=== PATIENT | male | born 1985 | race Caucasian/White ===

== ENCOUNTER → 2017-11-26 16:50 | Outpatient (CLI) | payer OTHER, SELFPAY ==
--- NOTE | 2017-11-26 16:58 | RAD_ITS ---
STUDY: X-RAY - LEFT FOOT CLINICAL: Male, 32 years old. Fall. Previous surgery. TECHNIQUE: 3 view(s) of the foot. COMPARISON: None. FINDINGS: No definite acute fracture or dislocation. 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 Chronic deformities are seen of the talus and calcaneus. Diffuse demineralization. RAD/Foot min 3 Views IMPRESSION: No definite acute fracture or dislocation. Electronically Signed: Wally Ramírez MD at 8:35 EDT , Service support ,
--- NOTE | 2017-11-26 16:58 | RAD_ITS ---
STUDY: X-RAY - LEFT ANKLE REASON FOR EXAM: Male, 32 years old. Fall TECHNIQUE: 3 view(s) of the ankle. COMPARISON: None. FINDINGS: Normal visualized distal tibia and fibula. Normal medial and lateral malleoli. Normal tibiotalar articulation and ankle mortise. Normal visualized talus and calcaneus. There are pins noted at the distal tarsal articulations. Mild soft tissue edema. RAD/Ankle min 3 Views IMPRESSION: No acute bony injury of the ankle. Electronically Signed: Marco A Huizar DO at 23:46 EDT Tel [phone], Service support ,
== END ==
PROVIDERS: Family Provider Family Medicine; PCP Family Medicine; Visit Provider Physician Assistant
DX: S93.402A Sprain of unspecified ligament of left ankle, initial encounter (principal); S93.602A Unspecified sprain of left foot, initial encounter
CPT/HCPCS: 73610; 73630

== ENCOUNTER → 2018-03-25 10:10 | Outpatient (CLI) | payer OTHER, SELFPAY | PROVIDERS: Family Provider Family Medicine; PCP Family Medicine; Visit Provider Podiatrist | DX: M76.62 Achilles tendinitis, left leg (principal); S93.402A Sprain of unspecified ligament of left ankle, initial encounter | CPT/HCPCS: 73721 ==

== ENCOUNTER 2018-07-22 14:30 | Outpatient (RCR) | payer OTHER, SELFPAY ==
--- NOTE | 2018-06-03 15:21 | HP.PTEVAL_ITS ---
Patient's Visit Information NICHO DUGAN is a 33 year old M referred to Physical Therapy by Lucy Bob DPM with a diagnosis of ACHILLES INJURY,SPRAIN ANKLE. Date of Evaluation: 06/03/18 Physical Therapist: Kelechi Collier PT, - Visit Plan Frequency: 2x /Week Duration: 8weeks Plan: ROM ankle ,strengthening ex's ankle eccentrics ,proprioception ,modalities as needed - Subjective Subjective: This 33 y/o male presents to physical therapy with left achilles injury ,sprain ankle. Patient DOI November fell down hole at work. Patient had pain initally see [facility] did x-rays and reffered to poditrist DR Bob. Dr Bob placed patient in boot and order MRI.Also plan to do EPAT. Patient has heel ,achilles tendon pain. Symptoms worse with walking ,standing,difficuly some with lifting,squatting. Patient does stairs one step at a time. Denies parathesia/tingling. Pain affects sleeping. No Meds.Patient has left ankle surgery as many years ago affects motion.Patient pain ankle affects QOL and job demnads. SOCAIL: single. 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 NEURO: denies parathesia/tingling,. GAIT: decrease stance time left ankle with decrease heel strike toe off. PROPRIOCEPTION: poor. EDEMA: mild ankle. AROM: dorsiflexion 10 degrees from 0 ,plantarfascia 45 degrees,inversion 0 degrees ,inversion 10 degrees. MMT: posterior tibials 4- /5,perneous 4-/5,anterior tibilas 3+/5,plantarflexion 3/5 - Goals Goal 1:: Independant with HEP Goal Time Frame: 6-8 Weeks Goal 2:: Patient to improve gait with niormal larry and stance time. Goal Time Frame: 6-8 Weeks Goal 3:: Patient to improve AROM to WFL to improve function with gait. Goal Time Frame: 6-8 Weeks Goal 4:: Patient increase strength ankle by 1/2 grade to improve gait and function. Goal Time Frame: 6-8 Weeks Goal 5:: Patient improve proprioception symmtrical left compared to right. 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 Rehabilitation Potential: Good - Anticipated Interventions Patient/Client Instruction: Educate patient on: Condition, Plan of Care For the Purpose of:: To decrease pain, To increase ROM, To improve nutrient delivery to tissue, To increase oxygenation perfusion, To improve muscle performance and motor function, To increase tolerance to activi ty/condition/position, To improve ability of physical actions for home/community/work/leisure, To improve health of tissue, To decrease soft tissue restriction, To increase flexibility/ROM, To improve ability to perform tasks related to life management Therapeutic Exercise to Include: Strength training, Flexibilty training, Gait and locomotor training, Passive ROM, Active ROM Comment: ankle For the Purpose of:: To decrease pain, To increase ROM, To improve muscle performance and motor function, To improve ability to perform ADL's, To increase tolerance to activity/condition/position, To improve gait and locomotor functions, To improve health of tissue, To decrease soft tissue restriction, To increase flexibility/ROM, To improve ability to perform tasks related to life management TENS: Yes IF ES: Yes Cryotherapy (ice pack, ice massage): Yes Thermo therapy (hot pack): Yes Ultrasound (thermal/non thermal): Yes Vasopneumatic device: Yes For the Purpose of:: To decrease pain, To increase ROM, To improve health of tissue, To decrease soft tissue restriction, To increase flexibility/ROM Thank you for the opportunity to evaluate your patient. For Medicare and Medicare HMO plans, please review the plan of care and approve it. It will need to be FAXED BACK to us at [phone] for Medicare purposes. Please let me know if there are questions or concerns regarding this plan of care. Physician Signature: Date:
--- NOTE | 2018-07-27 15:40 | HP.PTDCSUM ---
HP - PT D/C Summary It has been my pleasure to treat NICHO DUGAN under orders from Lucy Bob DPM, for the diagnosis of ACHILLES INJURY,SPRAIN ANKLE for a total of 16 visit(s). Discharge Date: Please see the following information for a summary of their discharge status. - Subjective Subjective: Doing well.. Seen on the wanted to cont. Plan to return - Pain Left Ankle Pain Intensity (Out of 10): 0 - Overall Improvement % Improvement: 50 - Objective Objective/Function: POSTURE: pes planus. GAIT: normal larry stance time heeltrike. PROPRIOCEPTION: DIMINISHED LEFT COMPARED TO RIGHT. AROM: dorsiflexion 5 degrees from 0 ,plantarflexion 60 degrrees,eversion 3 degrees,inversion 10 degrees. MMT: 4/5 ,eccept IN/EV in anvialble ROM - Goals Goal 1:: Independant with HEP Goal Progress: Goal Met Goal 2:: Patient to improve gait with niormal larry and stance time. Goal Progress: Goal Met Goal 3:: Patient to improve AROM to WFL to improve function with gait. Goal Progress: Goal Met Goal 4:: Patient increase strength ankle by 1/2 grade to improve gait and function. Goal Progress: Goal Met Goal 5:: Patient improve proprioception symmtrical left compared to right. Goal Progress: Goal Met Goal 6:: Patient be able to perform job demnads with min to no limitations Goal Progress: Goal Met - Plan Plan: RTD NEED NEW C-9 IF CONT - D/C Information If there are questions or concerns regarding this patient's physical therapy, please feel free to call me at [phone]. Thank you for the referral of this patient. Sincerely, Kelechi Collier, PT, Cert MDT, OCS
== END 2018-07-22 19:00 | disposition home or self-care (01) ==
LOC: PT 14:30
PROVIDERS: Family Provider Family Medicine; PCP Family Medicine; Referring Provider Podiatrist; Visit Provider Podiatrist
DX: M76.62 Achilles tendinitis, left leg (principal); S93.402D Sprain of unspecified ligament of left ankle, subsequent encounter; S93.602D Unspecified sprain of left foot, subsequent encounter
CPT/HCPCS: 97110; 97161; 97530

== ENCOUNTER 2018-09-29 14:30 | Outpatient (RCR) | payer OTHER, SELFPAY ==
--- NOTE | 2018-08-25 15:29 | HP.PTEVAL_ITS ---
Patient's Visit Information NICHO DUGAN is a 33 year old M referred to Physical Therapy by Lucy Bob DPM with a diagnosis of ACHILLES TENDONITIS ,SPRAIN FOOT. Date of Evaluation: 08/25/18 Physical Therapist: Kelechi Collier PT, Cert MDT, OCS - Visit Plan Frequency: 2x /Week Duration: 4 Weeks Plan: LEFT ANKLE FLEXABLITY G-S,STRENGTHENING EX'S ANKLE ECCENTRICS,MANUAL THERAPY,PROPRIOCEPTION ,WORK CONDITIONING ,MODALITIES PRN - Subjective Findings: This 33 y/o male presents to physical therapy with left achilles tendonitis ,sprain foot. Patient fell down a hole at work injurying left ankle DOI 2017. Patient had pain initially and then [facility]- rays referred to Dr Bob. DR Bob placed in boot and ordered MRI. also did EPAT. Patient had PT which helped and got stronger. Seen Dr Bob recommended to cont PT and EPAT. Patient has mild pain 4/10. Patient slowly weaning from cam boot. Patient conts to have pain with extended walking and standing impairs job demands and ADL'S. Patient denies parathesia/tingling. Patient pain doesnt affect sleeping. Patient has h/o reconstruction surgery left ankle. Patientnt ankle impairs QOL and job demands. SOCIAL: single. VOCATION: [place] - Pain Left Ankle Pain Intensity (Out of 10): 4 Pain Intensity Range: 10 - Objective POSTURE: pes cavus. GAIT:Ambulates with heelstike toe off with mild decrease stance time during the gait cycle. PROPRIOCEPTION: impiared left greater than right : 5-10 sec SLS on left. NEURO: intact ,denies parathesia/tingling. EDEMA: absent. AROM: dorsiflexion 5 -0 degrees, plantar flexion 55 degrees, eversion 0 degrees,inversion 10 degrees. MMT: dorsiflexion 4/5 perneous /posterior tibialas 4-/5,G-S 3+/5. STAIR:one step at a time with stairs - Goals Goal 1:: Independant with HEP Goal Time Frame: 4-6 Weeks Goal 2:: Patient to normalize gait pattern with shoe on left Goal Time Frame: 4-6 Weeks Goal 3:: Improve proprioception left symmtrical to right Goal Time Frame: 4-6 Weeks Goal 4:: Improve AROM left ankle by 3-5 degrees or greater to improve function Goal Time Frame: 4-6 Weeks Goal 5:: Patient increase ankle stablizers by 4/5 to improve function with gait Goal Time Frame: 4-6 Weeks Goal 6:: Patient to improve LFES score by 5-10 points to improve QOL Goal Time Frame: 4-6 Weeks - Rehabilitation Potential Physical Therapy Diagnosis: Patient has left achilles tendonitis and sprain foot with decrease gait ,ROM ,proprioception,strength and stairs impairs ADLS' thus benifit from skilled Rehabilitation Potential: Good - Anticipated Interventions Patient/Client Instruction: Educate patient on: Condition, Plan of Care For the Purpose of:: To decrease pain, To increase ROM, To improve muscle performance and motor function, To improve ability to perform ADL's, To increase tolerance to activity/condition/position, To improve ability of physical actions for home/community/work/leisure, To improve health of tissue, To decrease soft tissue restriction, To increase flexibility/ROM, To improve ability to perform tasks related to life management Therapeutic Exercise to Include: Strength training, Flexibilty training, Gait and locomotor training, Passive ROM, Active ROM Comment: STRETCHING ANKLE G-S,PROPRIOCEPTION For the Purpose of:: To decrease pain, To increase ROM, To improve muscle performance and motor function, To improve ability to perform ADL's, To increase tolerance to activity/condition/position, To improve gait and locomotor functions, To improve health of tissue, To increase flexibility/ROM, To improve ability to perform tasks related to life management Manual Therapy Techniques to Include: Mobilization Comment: ANKLE For the Purpose of:: To decrease swelling/inflammation, To improve health of tissue, To decrease soft tissue restriction TENS: Yes IF ES: Yes Cryotherapy (ice pack, ice massage): Yes Thermo therapy (hot pack): Yes For the Purpose of:: To improve nutrient delivery to tissue, To increase oxygenation perfusion, To improve health of tissue, To decrease soft tissue restriction Thank you for the opportunity to evaluate your patient. For Medicare and Medicare HMO plans, please review the plan of care and approve it. It will need to be FAXED BACK to us at [phone] for Medicare purposes. For Medicare only, by signing this I certify the plan of care. Please let me know if there are questions or concerns regarding this plan of care. Physician Signature: Date:
--- NOTE | 2018-09-29 15:08 | HP.PTDCSUM ---
HP - PT D/C Summary It has been my pleasure to treat NICHO DUGAN under orders from Lucy Bob DPM, for the diagnosis of ACHILLES TENDONITIS ,SPRAIN FOOT for a total of 8 visit(s). Discharge Date: 09/29/18 Please see the following information for a summary of their discharge status. - Subjective Subjective: Doing good .. no pain just soreness. Been using brace with boot .Patient works couple days a [employer]. - Pain Left Ankle Pain Intensity (Out of 10): 0 - Overall Improvement % Improvement: 95 - Objective Objective/Function: POSTURE: pes cavus. GAIT: normal larry. AROM: DF 0 degrees,PF 55 degrees, EVERSION 0 ,INVERSION 20. MMT: ankle 4/5 ,G-S 4-/5. GAIT: normal larry - Goals Goal 1:: Independant with HEP Goal Progress: Goal Met Goal 2:: Patient to normalize gait pattern with shoe on left Goal Progress: Goal Met Goal 3:: Improve proprioception left symmtrical to right Goal Progress: Goal Met Goal 4:: Improve AROM left ankle by 3-5 degrees or greater to improve function Goal Progress: Goal Met Goal 5:: Patient increase ankle stablizers by 4/5 to improve function with gait Goal Progress: Goal Met Goal 6:: Patient to improve LFES score by 5-10 points to improve QOL Goal Progress: Goal Met - Plan Plan: df/c to hep - D/C Information If there are questions or concerns regarding this patient's physical therapy, please feel free to call me at [phone]. Thank you for the referral of this patient. Sincerely, Kelechi Collier, PT, Cert MDT, OCS
== END 2018-09-29 19:00 | disposition home or self-care (01) ==
LOC: PT 14:30
PROVIDERS: Family Provider Family Medicine; PCP Family Medicine; Referring Provider Podiatrist; Visit Provider Podiatrist
DX: M76.62 Achilles tendinitis, left leg (principal); S93.602D Unspecified sprain of left foot, subsequent encounter
CPT/HCPCS: 97110; 97161; 97530